=== PATIENT | male | born 2000 | race Caucasian/White ===

== ENCOUNTER 2021-08-21 22:41 | Emergency (ER) | payer MEDICAID, SELFPAY ==
[2021-08-21 23:34] VITALS: BP 124/68; PULSE 82; RESP 18; TEMP 37; O2SAT 97; BMI 22.0
--- NOTE | 2021-08-21 23:47 | ED.GENADULT ---
HPI - General Adult General Chief complaint: General Medical Stated complaint: ?uti bloody urine Time Seen by Provider: 08/21/21 22:43 Source: patient Mode of arrival: ambulatory History of Present Illness HPI narrative: Patient with history of left 2.5 mm UVJ stone on 07/18 was seen at [facility] again on 08/[address] scan was negative comes here now for the pain is still going on now getting worse no nausea no vomiting patient was seen by urologist yesterday and advised to drink plenty of fluids comes here again because of the pain is ?getting worse and having dark color urine now no fever no chills no nausea no vomiting Related Data Previous Rx's Medication Instructions Recorded phenazopyridine 200 mg tablet 200 mg PO TID 2 Days #6 tab 08/22/21 (Pyridium) tamsulosin 0.4 mg capsule (Flomax) 0.4 mg PO BEDTIME #7 cap 08/22/21 tramadol 50 mg tablet 50 mg PO Q6H PRN #20 tab 08/22/21 Allergies Allergy/AdvReac Type Severity Reaction Status Date / Time No Known Allergies Allergy Unverified 06/05/20 18:12 Review of Systems Review of Systems: Yes all other systems are reviewed and are negative PMFSH Social History Social History Advance Directives: No Advance Directives Information Provided: Yes Physical Exam Vital Signs: Vital Signs: Last Vital Signs Temp 98.6 F 08/21/21 23:34 Pulse 82 08/21/21 23:34 Resp 16 08/22/21 00:32 BP 124/68 08/21/21 23:34 Pulse Ox 97 08/21/21 23:34 BMI result Body Mass Index 22.0 Appearance: Alert. Oriented X3. No acute distress. ENT: Pharynx normal. Oral Mucosa moist Neck: Normal inspection. Neck supple. CVS: Normal heart rate and rhythm. Pulses normal. Respiratory: No respiratory distress. Equal air entry bilateral, Abdomen: Soft and nontender. Bowel sounds are present, no mass palpable, mild left CVA tenderness Skin: Skin warm and dry. Normal skin color. Normal skin turgor. Extremities: No lower extremity edema. No calf tenderness Neuro: Oriented X 3. Medical Decision Making Lab Data Lab results reviewed: Yes I reviewed the patient's lab results. Labs: Lab Results 08/22/21 Range/Units 00:00 Urine Color BROWN Urine Appearance CLOUDY Urine pH 6.5 (5.0-8.0) Ur Specific [place] 1.025 (1.005-1.025) Urine Protein 1+ H (NEG-TRACE) MG/DL Urine Glucose (UA) NEG (NEG) MG/DL Urine Ketones NEG (NEG) MG/DL Urine Blood 3+ H (NEG) Urine Nitrite NEG (NEG) Ur Leukocyte Esterase NEG (NEG) Urine RBC 76-150 H (0) /HPF Urine WBC 0 (0-4) /HPF Ur Squamous Epith Cells TRACE /LPF Tyrosine Crystals TRACE /LPF Urine Bacteria TRACE /LPF RBC Casts 0-2 /LPF Discharge Plan Discharge Clinical Impression: Renal colic on left side Patient Disposition: Home, Self-Care Instructions: Renal Colic (ED) Additional Instructions: Your pain on the flank areas likely from the stone and spasm of the ureters Take pain medication as prescribed and follow-up with PCP/neurologist Drink plenty of fluids Prescriptions: New tamsulosin [Flomax] 0.4 mg capsule 0.4 mg PO BEDTIME Qty: 7 RF: 0 phenazopyridine [Pyridium] 200 mg tablet 200 mg PO TID 2 Days Qty: 6 RF: 0 tramadol 50 mg tablet 50 mg PO Q6H PRN (Reason: pain) Qty: 20 RF: 0
[2021-08-22 00:10] LABS: Appearance Urine CLOUDY; Color Urine BROWN; Glucose Urine UA NEG (NEG); Leukocyte Esterase Urine NEG (NEG); Nitrite Urine NEG (NEG); PH 6.5 (5.0-8.0); Specific Gravity - Urine 1.025 (1.005-1.025); UACC Culture Trigger NO; Urine Blood 3+ (NEG); Urine Ketones NEG (NEG); Urine Protein 1+ MG/DL (NEG-TRACE)
[2021-08-22 00:18] LABS: Bacteria Urine TRACE /LPF; Red Blood Cell Casts Urine 0-2 /LPF; Squamous Epithelial Cell Urine TRACE /LPF
[2021-08-22 00:19] LABS: Tyrosine Crystal Urine TRACE /LPF; WBC Urine 0 /HPF (0-4)
[2021-08-22] MEDS: oxyCODONE HCl Immed Release 5 MG TABLET 10 MG PO (00:27)
[2021-08-22] MEDS: Phenazopyridine HCL 200 MG TABLET PO (00:28)
[2021-08-22] MEDS: Tamsulosin HCL 0.4 MG CAPSULE PO (00:28)
[2021-08-22 00:32] VITALS: RESP 16
== END 2021-08-22 00:47 | disposition home or self-care (01) ==
LOC: HO.ED 08-22 00:40
PROVIDERS: Emergency Medicine; Emergency Provider Internal Medicine
DX: N20.0 Calculus of kidney (principal)
CPT/HCPCS: 81001; 99283; 99284